=== PATIENT | male | born 1960 | race African-American/Black ===

== ENCOUNTER 2021-11-23 12:01 | Inpatient (IN) | payer OTHER ==
[2021-11-23] MEDS ORDERED: MAG HYDROX/AL HYDROX/SIMETH 30 ML UNIT-DOSE CUP PO PRN (12:37)
[2021-11-23] MEDS ORDERED: NICOTINE 10 MG CARTRIDGE (INHALER) IH PRN (12:37)
[2021-11-23] MEDS ORDERED: METHOCARBAMOL 500 MG TABLET PO PRN (12:37)
[2021-11-23] MEDS ORDERED: ONDANSETRON *ODT* 4 MG TABLET SL PRN (12:37)
[2021-11-23] MEDS ORDERED: BISMUTH SUBSALICYLATE 524 MG/30 ML PO PRN (12:37)
[2021-11-23] MEDS ORDERED: IBUPROFEN 400 MG TABLET (FP) PO PRN (12:37)
[2021-11-23] MEDS ORDERED: LOPERAMIDE HCL 2 MG CAPSULE PO PRN (12:37)
[2021-11-23] MEDS ORDERED: ACETAMINOPHEN 325 MG TABLET (FP) PO PRN ×2 (12:37)
[2021-11-23] MEDS ORDERED: MAGNESIUM CITRATE 300 ML BOTTLE PO PRN (12:37)
[2021-11-23] MEDS ORDERED: MAGNESIUM HYDROX 2400MG/30ML ORAL SUSPENSION 30 ML CUP PO PRN (12:37)
[2021-11-23] MEDS ORDERED: MENTHOL/PHENOL 1 EACH UD MM PRN (12:37)
[2021-11-23] MEDS ORDERED: cloNIDine HCL 0.1 MG TABLET PO ONE (13:30)
[2021-11-23] MEDS ORDERED: BUPRENORPHINE HCL 150 MCG, BUPRENORPHINE HCL 75 MCG BC ONE (13:30)
[2021-11-23 13:39] VITALS: BMI 25.7
[2021-11-23] MEDS ORDERED: BUPRENORPHINE HCL 75 MCG FILM BC ONE ×2 (15:31→16:58)
[2021-11-23] MEDS ORDERED: hydrOXYzine PAMOATE 25 MG CAPSULE (FP) PO ONE (15:31)
[2021-11-23] MEDS ORDERED: cloNIDine HCL 0.1 MG TABLET ONE (15:31)
[2021-11-23] MEDS ORDERED: BUPRENORPHINE HCL 150 MCG FILM BC ONE ×2 (15:31→16:59)
[2021-11-23] MEDS: PRENATAL VITAMINS W/ FOLIC ACID TABLET (FP) PO SCH (15:36)
[2021-11-23] MEDS: hydrOXYzine PAMOATE 25 MG CAPSULE (FP) PO SCH ×3 (15:36→21:18)
[2021-11-23 16:12] LABS: HEMATOCRIT 37.8 % (35.4-49); HEMOGLOBIN 12.6 GM/dL (11.7-16.9); MCH 28.6 pg (25.7-33.7); MCHC 33.4 g/dl (32.0-35.9); MEAN CELL VOLUME 85.5 fl (80-96); MEAN PLT VOLUME 7.9 fl (7.5-11.1); PLATELET COUNT 312 10^3/uL (134-434); RBC 4.42 M/mm3 (4.00-5.60); RDW 15.2 % (11.9-15.9); WHITE BLOOD COUNT 8.2 K/mm3 (4.0-10.0)
[2021-11-23 16:27] LABS: CALCIUM 8.7 mg/dL (8.5-10.1)
[2021-11-23 16:32] LABS: BILIRUBIN,TOTAL 0.6 mg/dL (0.2-1); TOT PROT 7.2 g/dl (6.4-8.2)
[2021-11-23] MEDS ORDERED: cloNIDine HCL 0.1 MG TABLET PO PRN (16:37)
[2021-11-23] MEDS: NICOTINE 14 MG/24 HOURS TOPICAL PATCH TD SCH (17:07)
[2021-11-23] MEDS: THIAMINE HCL 100 MG TABLET (FP) PO SCH (21:18)
[2021-11-23] MEDS: MELATONIN 5 MG TABLETS PO SCH (21:18)
[2021-11-24] MEDS ORDERED: BUPRENORPHINE HCL 75 MCG FILM BC ONE ×2 (04:29→19:51)
[2021-11-24] MEDS ORDERED: BUPRENORPHINE HCL 150 MCG FILM BC ONE ×2 (04:29→19:52)
[2021-11-24] MEDS: hydrOXYzine PAMOATE 25 MG CAPSULE (FP) PO SCH ×5 (05:27→23:00)
[2021-11-24] MEDS: BUPRENORPHINE HCL 150 MCG, BUPRENORPHINE HCL 75 MCG BC SCH ×2 (05:29→19:52)
[2021-11-24] MEDS: PRENATAL VITAMINS W/ FOLIC ACID TABLET (FP) PO SCH (13:27)
[2021-11-24] MEDS: NICOTINE 14 MG/24 HOURS TOPICAL PATCH TD SCH (13:27)
[2021-11-24] MEDS: diazePAM 5 MG TABLET PO PRN (22:59)
[2021-11-24] MEDS: THIAMINE HCL 100 MG TABLET (FP) PO SCH (23:00)
[2021-11-24] MEDS: MELATONIN 5 MG TABLETS PO SCH (23:00)
[2021-11-25 06:06] LABS: SARS-CoV-2 NAA Not Detected (Not Detected)
[2021-11-25] MEDS: BUPRENORPHINE HCL 450 MCG FILM BC SCH ×2 (06:51→18:31)
[2021-11-25] MEDS: hydrOXYzine PAMOATE 25 MG CAPSULE (FP) PO SCH ×5 (06:52→23:26)
[2021-11-25] MEDS: diazePAM 5 MG TABLET PO PRN (09:45)
[2021-11-25] MEDS: NICOTINE 14 MG/24 HOURS TOPICAL PATCH TD SCH (09:46)
[2021-11-25] MEDS: PRENATAL VITAMINS W/ FOLIC ACID TABLET (FP) PO SCH (09:46)
[2021-11-25] MEDS: MELATONIN 5 MG TABLETS PO SCH (23:25)
[2021-11-25] MEDS: THIAMINE HCL 100 MG TABLET (FP) PO SCH (23:26)
[2021-11-26] MEDS ORDERED: BUPRENORPHINE/NALOXONE 4 MG/1 MG FILM PACKET SL SCH (06:00)
[2021-11-26 06:35] VITALS: PULSE 85
[2021-11-26] MEDS: hydrOXYzine PAMOATE 25 MG CAPSULE (FP) PO SCH ×2 (08:21→09:26)
[2021-11-26 08:47] VITALS: BP 123/92; TEMP 97.3
[2021-11-26] MEDS: PRENATAL VITAMINS W/ FOLIC ACID TABLET (FP) PO SCH (09:26)
[2021-11-26] MEDS: NICOTINE 14 MG/24 HOURS TOPICAL PATCH TD SCH (09:26)
[2021-11-27] MEDS ORDERED: BUPRENORPHINE/NALOXONE 8 MG/2 MG FILM PACKET SL ONE (06:00)
== END 2021-11-26 10:37 | disposition home or self-care (01) | DRG 773 ==
LOC: YASAS 12:01 → Y3N 15:21
PROVIDERS: ADMIT Allergy & Immunology; ATTEND Nurse Practitioner Acute Care
PROC: HZ2ZZZZ Detoxification Services for Substance Abuse Treatment (ICD-10-PCS; principal; 2021-11-23)
DX: F11.23 Opioid dependence with withdrawal (principal); F10.230 Alcohol dependence with withdrawal, uncomplicated; F14.20 Cocaine dependence, uncomplicated; F13.20 Sedative, hypnotic or anxiolytic dependence, uncomplicated; F17.210 Nicotine dependence, cigarettes, uncomplicated; I69.844 Monoplegia of lower limb following other cerebrovascular disease affecting left non-dominant side; I69.993 Ataxia following unspecified cerebrovascular disease
CPT/HCPCS: 36415; 80053; 85027; 86780; C9803; J0735; U0003; U0005